=== PATIENT | female | born 1940 | race Caucasian/White ===

== ENCOUNTER 2019-03-14 17:51 | Inpatient (IN) | payer BC ==
[~2019-03-14] VITALS: Ht 160 cm; Wt 80.7 kg
--- NOTE | 2019-03-14 17:58 | QN ---
Documentation Comment Medical screening exam initiated. Patient brought in by ambulance. Will be sent to triage for vital signs. RONALDO GILLILAND MD March 14, 2019 17:58
[2019-03-14] MEDS ORDERED: PANTOPRAZOLE 40 MG INJ IV STA (18:25)
--- NOTE | 2019-03-14 20:55 | ERD ---
ER Documentation Chief Complaint Chief Complaint PER EMS REPORT HEMATEMESIS X 2 TODAY HPI Patient is a 78-year-old female with hypertension and diabetes who presents with vomiting blood. The patient was brought in by ambulance. The symptoms started 3 hours ago. She denies pain. She felt dizziness. She had the same thing happen 4 to 5 months ago but it went away on its own. Patient is currently on aspirin 81 mg but no other blood thinners. Upon review of old medical records this the patient's first visit to the emergency department. ROS All systems reviewed and are negative except as per history of present illness. Allergies Allergies: Coded Allergies: No Known Allergy (Unverified , 03/14/19) PMhx/Soc History of Surgery: Yes (BILATERAL TKR ) Anesthesia Reaction: No Hx Neurological Disorder: No Hx Respiratory Disorders: No Hx Cardiac Disorders: Yes (HTN ) Hx Psychiatric Problems: No Hx Miscellaneous Medical Probl: No Hx Alcohol Use: No Hx Substance Use: No Hx Tobacco Use: No Smoking Status: Never smoker FmHx Family History: diabetes Physical Exam Vitals Vital Signs Date Temp Pulse Resp B/P (MAP) Pulse Ox O2 O2 Flow FiO2 Time Delivery Rate 03/14/19 81 16 129/67 95 Room Air 19:36 (87) 03/14/19 98.6 100 18 150/68 99 18:00 (95) Physical Exam Const: Mild distress Head: Atraumatic Eyes: Normal Conjunctiva ENT: Normal External Ears, Nose and Mouth. Neck: Full range of motion. No meningismus. Resp: Clear to auscultation bilaterally Cardio: Regular rate and rhythm, no murmurs Abd: Soft, non tender, non distended. Normal bowel sounds Skin: Pale skin Back: No midline or flank tenderness Ext: No cyanosis, or edema Neur: Awake and alert Psych: Normal Mood and Affect Result Diagram: 03/14/19190303/14/191903 Results 24 hrs Laboratory Tests Test 03/14/19 19:03 03/14/19 19:04 Prothrombin Time 15.7 Sec Prothrombin Time Ratio 1.2 INR International Normalized Ratio 1.24 Activated Partial Thromboplast Time 25.0 Sec White Blood Count 10.2 10^3/ul Red Blood Count 3.49 10^6/ul Hemoglobin 8.7 g/dl Hematocrit 28.7 % Mean Corpuscular Volume 82.2 fl Mean Corpuscular Hemoglobin 24.9 pg Mean Corpuscular Hemoglobin Concent 30.3 g/dl Red Cell Distribution Width 16.2 % Platelet Count 232 10^3/UL Mean Platelet Volume 11.7 fl Immature Granulocytes % 0.400 % Neutrophils % 86.8 % Lymphocytes % 8.9 % Monocytes % 3.4 % Eosinophils % 0.1 % Basophils % 0.4 % Nucleated Red Blood Cells % 0.0 /100WBC Immature Granulocytes # 0.040 10^3/ul Neutrophils # 8.8 10^3/ul Lymphocytes # 0.9 10^3/ul Monocytes # 0.4 10^3/ul Eosinophils # 0.0 10^3/ul Basophils # 0.0 10^3/ul Nucleated Red Blood Cells # 0.0 10^3/ul Sodium Level 142 mmol/L Potassium Level 5.0 mmol/L Chloride Level 108 mmol/L Carbon Dioxide Level 24 mmol/L Anion Gap 10 Blood Urea Nitrogen 58 mg/dl Creatinine 0.79 mg/dl Est Glomerular Filtrat Rate mL/min mL/min Glucose Level 170 mg/dl Calcium Level 9.4 mg/dl Total Bilirubin 0.2 mg/dl Direct Bilirubin 0.00 mg/dl Indirect Bilirubin 0.2 mg/dl Aspartate Amino Transf (AST/SGOT) 19 IU/L Alanine Aminotransferase (ALT/SGPT) 22 IU/L Alkaline Phosphatase 39 IU/L Troponin I < 0.012 ng/ml Total Protein 7.2 g/dl Albumin 4.2 g/dl Globulin 3.00 g/dl Albumin/Globulin Ratio 1.40 Current Medications Medications Dose Sig/Ming Start Time Status Last (Trade) Ordered Route PRN Stop Time Admin Dose Reason Admin 40 mg ONCE STAT 03/14/19 DC 03/14/19 Pantoprazole IV 18:25 03/14/19 18:56 (Protonix 18:26 Iv) Procedures/MDM EKG read by me: Rate/Rhythm: Regular rate and rhythm at a normal rate Intervals: Normal Impression: No evidence of ischemia or arrhythmia Patient is a 78-year-old female presents with GI bleed and anemia. She has been vomiting blood in her hemoglobin is 8.7. She looked pale and was having nausea and vomiting. The patient will be admitted to the care of the panel team to a medical surgical inpatient bed. She will likely need GI consultation and endoscopy. She had an endoscopy approximately 11 years ago which was her last one. Departure Diagnosis: Primary Impression: Anemia Anemia type: unspecified type Qualified Codes: D64.9 - Anemia, unspecified Additional Impression: Hematemesis Nausea presence: with nausea Qualified Codes: K92.0 - Hematemesis Condition: RONALDO Qureshi MD March 14, 2019 20:55
[2019-03-14] MEDS ORDERED: ALBUTEROL/IPRATROPIUM (NEB) 3 ML AMP HHN PRN (21:30)
[2019-03-14] MEDS ORDERED: ONDANSETRON 4 MG INJ IV PRN (21:30)
[2019-03-14] MEDS ORDERED: NACL 0.9% 3 ML SYG IV SCH (21:30)
--- NOTE | 2019-03-14 22:13 | HP ---
Date/Time of Note Date/Time of Note DATE: 03/14/19 TIME: 22:13 Assessment/Plan VTE Prophylaxis SCD applied (from Nsg): Yes Pharmacological prophylaxis: NA/contraindicated Pharm contraindication: bleeding Lines/Catheters IV Catheter Type (from Nrsg): Saline Lock Assessment/Plan Assessment/Plan 1. Upper GI bleed -IV Protonix -Keep n.p.o. with IV fluid -GI consult 2. Anemia: Secondary to above -FOBT. Check iron/ferritin to eval for iron deficiency -See #1 Result Diagram: 03/14/19190303/14/194 Results 24hrs Laboratory Tests Test 03/14/19 19:03 03/14/19 19:04 Prothrombin Time 15.7 H Prothrombin Time Ratio 1.2 INR International Normalized Ratio 1.24 Activated Partial Thromboplast Time 25.0 White Blood Count 10.2 Red Blood Count 3.49 L Hemoglobin 8.7 L Hematocrit 28.7 L Mean Corpuscular Volume 82.2 Mean Corpuscular Hemoglobin 24.9 L Mean Corpuscular Hemoglobin Concent 30.3 L Red Cell Distribution Width 16.2 H Platelet Count 232 Mean Platelet Volume 11.7 H Immature Granulocytes % 0.400 Neutrophils % 86.8 H Lymphocytes % 8.9 L Monocytes % 3.4 Eosinophils % 0.1 Basophils % 0.4 Nucleated Red Blood Cells % 0.0 Immature Granulocytes # 0.040 H Neutrophils # 8.8 H Lymphocytes # 0.9 Monocytes # 0.4 Eosinophils # 0.0 Basophils # 0.0 Nucleated Red Blood Cells # 0.0 Sodium Level 142 Potassium Level 5.0 Chloride Level 108 Carbon Dioxide Level 24 Anion Gap 10 Blood Urea Nitrogen 58 H Creatinine 0.79 Est Glomerular Filtrat Rate mL/min Glucose Level 170 Calcium Level 9.4 Total Bilirubin 0.2 Direct Bilirubin 0.00 Indirect Bilirubin 0.2 Aspartate Amino Transf (AST/SGOT) 19 Alanine Aminotransferase (ALT/SGPT) 22 Alkaline Phosphatase 39 L Troponin I < 0.012 Total Protein 7.2 Albumin 4.2 Globulin 3.00 Albumin/Globulin Ratio 1.40 HPI/ROS Admit Date/Time Admit Date/Time Hx of Present Illness This is a 78-year-old female with history of depression and lower back pain who presents the ER complaining of vomiting blood. This is started a few hours prior to arrival to the ER. She vomited 3 times, was emesis described as bright and dark blood. She also complains of dizziness. Denies BRBPR or dark stool. When presented to the ER, vitals are stable. Hemoglobin was found to be 8.7. PMH/Family/Social Past Medical History Medical History: other (See HPI) Medications Current Medications Dextrose/Sodium Chloride 1,000 ml @ 75 mls/hr [id number] IV ; Start 03/14/19 at 21:03 IV Flush (NS 3 ml) 3 ml PER PROTOCOL IV ; Start 03/14/19 at 21:30 Ondansetron HCl (Zofran Inj) 4 mg Q6H PRN IV NAUSEA/VOMITING; Start 03/14/19 at 21:30 Albuterol/ Ipratropium (Duoneb) 3 ml Q2H RESP THERAPY PRN HHN SHORTNESS OF BREATH; Start 03/14/19 at 21:30 Coded Allergies: No Known Allergy (Unverified , 03/15/19) Past Surgical History Past Surgical Hx: other (HPI) Family History Significant Family History: no pertinent family hx Social History Alcohol Use: none Smoking Status: Never smoker Drug Use: none Exam/Review of Systems Vital Signs Vitals Vital Signs Date Temp Pulse Resp B/P (MAP) Pulse Ox O2 O2 Flow FiO2 Time Delivery Rate 03/14/19 81 16 120/75 98 Room Air 21:23 (90) 03/14/19 98.6 18:00 Exam Constitutional: other (No acute distress) Head: normocephalic, atraumatic Eyes: EOMI, PERRL Respiratory: clear to auscultation, normal air movement Cardiovascular: regular rate and rhythm, nl pulses Gastrointestinal: soft, other (Minimal abdominal pain to deep palpation, mainly in the epigastric and periumbilical area) Extremities: normal pulses ANJEL CHU MD March 14, 2019 22:13
[2019-03-15] VITALS (13 sets, daily range): BP systolic 120–154; BP diastolic 58–68; PULSE 56–81; RESP 15–25; Ht 160 cm; Wt 80.7 kg
[2019-03-15] MEDS: DEXTROSE 5%-0.45% NACL 1,000 ML IV SCH ×3 (02:04→13:28)
[2019-03-15] MEDS ORDERED: OXYB5SYR2 PO (05:47)
[2019-03-15] MEDS ORDERED: CELE200C PO (05:47)
[2019-03-15] MEDS ORDERED: ALEN35TA12 PO (05:47)
[2019-03-15] MEDS ORDERED: CHOL100062 PO (05:47)
[2019-03-15] MEDS ORDERED: LEVO25TA6 PO (05:47)
[2019-03-15] MEDS ORDERED: ASPI-903 PO (05:47)
[2019-03-15] MEDS ORDERED: FOLI-49 PO (05:47)
[2019-03-15] MEDS ORDERED: AMLO5TAB4 PO (05:47)
[2019-03-15] MEDS ORDERED: DULO60CA59 PO (05:47)
[2019-03-15] MEDS ORDERED: FER325 PO (05:47)
[2019-03-15] MEDS ORDERED: ZOC10 PO (05:47)
[2019-03-15] MEDS ORDERED: METF500T24 PO (05:47)
[2019-03-15] MEDS ORDERED: TRAM50TA PO (05:47)
[2019-03-15] MEDS ORDERED: LORA1TAB PO (05:47)
[2019-03-15] MEDS ORDERED: LOSA100T15 PO (05:47)
[2019-03-15] MEDS ORDERED: PANTOPRAZOLE 40 MG INJ IV ONE (08:00)
--- NOTE | 2019-03-15 12:34 | EN ---
Date/Time of Note Date/Time of Note DATE: 03/15/19 TIME: 12:34 CONRAD GARCIA March 15, 2019 12:34
[2019-03-15] MEDS ORDERED: traMADol 50 MG TAB PO PRN (13:00)
[2019-03-15] MEDS ORDERED: INSULIN ASPART [NOVOLOG] 3 ML PEN SC SCH ×2 (13:00→17:00)
[2019-03-15] MEDS ORDERED: hydrALAzine 20 MG INJ IV PRN (13:00)
--- NOTE | 2019-03-15 13:00 | PN ---
Date/Time of Note Date/Time of Note DATE: 03/15/19 TIME: 12:56 Assessment/Plan VTE Prophylaxis Risk score (from Ns)>0 risk: 5 SCD applied (from Ns): Yes Pharmacological prophylaxis: NA/contraindicated Pharm contraindication: bleeding Lines/Catheters [facility] Saline Lock Urinary Cath still in place: No Assessment/Plan Hospital Course Subjective: feels better, no further vomitting, hx of one episode of hematemesis a couple of months ago, resolved on it's own Objective: General: A&O x3, answering questions appropriately, elderly HEENT: NC/ AT. PERRL. EOM intact Neck: supple CVS: S1, S2, RRR. no murmurs. no pain on chest wall palpation Lungs: CTA b/l. no wheezing or rhonchi Abd: soft, nontender, +BS Ext: moving all extremities skin: no rashes Assessment and plan: 1. Upper GI bleed / Hematemesis -IV Protonix, no further vomiting since admission -Keep n.p.o. with IV fluid -GI consult 2. Anemia: Secondary to above -FOBT. Check iron/ferritin to eval for iron deficiency -See #1 3. Diabetes type 2 4. Chronic hypertension 5. Chronic dyslipidemia 6. Chronic hypothyroidism 6. Chronic NSAID therapy 7. Chronic osteoporosis 8. Chronic vitamin D deficiency 9. Chronic depression: Stable 10. Patient reporting memory loss and occasional falls without injury, likely 2/2 age, family declining imaging at this time Plan: Continue n.p.o., continue IV fluids, await GI review and recommendations. Avoid Nsaids Continue home medications, resume hypoglycemics once she has been cleared for a diet and titrate as indicated Continue supportive care. Further interventions per course. Result Diagram: 03/15/19 0436 03/15/19 0436 Results 24hrs Laboratory Tests Test 03/14/19 19:03 03/14/19 19:04 03/15/19 01:26 03/15/19 04:36 Prothrombin Time 15.7 H Prothrombin Time Ratio 1.2 INR International 1.24 Normalized Ratio Activated 25.0 Partial Thromboplast Time White Blood Count 10.2 7.0 # Red Blood Count 3.49 L 3.10 L Hemoglobin 8.7 L 7.8 L Hematocrit 28.7 L 25.5 L Mean Corpuscular Volume 82.2 82.3 Mean Corpuscular 24.9 L 25.2 L Hemoglobin Mean Corpuscular 30.3 L 30.6 L Hemoglobin Concent Red Cell Distribution 16.2 H 16.5 H Width Platelet Count 232 213 Mean Platelet Volume 11.7 H 12.2 H Immature Granulocytes % 0.400 0.300 Neutrophils % 86.8 H 62.1 Lymphocytes % 8.9 L 27.5 Monocytes % 3.4 9.0 Eosinophils % 0.1 0.7 Basophils % 0.4 0.4 Nucleated Red Blood 0.0 0.0 Cells % Immature Granulocytes # 0.040 H 0.020 Neutrophils # 8.8 H 4.4 Lymphocytes # 0.9 1.9 Monocytes # 0.4 0.6 Eosinophils # 0.0 0.1 Basophils # 0.0 0.0 Nucleated Red Blood 0.0 0.0 Cells # Sodium Level 142 143 Potassium Level 5.0 4.1 Chloride Level 108 108 Carbon Dioxide Level 24 29 Anion Gap 10 6 Blood Urea Nitrogen 58 H 50 H Creatinine 0.79 0.65 Est Glomerular Filtrat Rate mL/min Glucose Level 170 133 Calcium Level 9.4 9.1 Total Bilirubin 0.2 0.2 Direct Bilirubin 0.00 0.00 Indirect Bilirubin 0.2 0.2 Aspartate Amino 19 17 Transf (AST/SGOT) Alanine 22 26 Aminotransferase (ALT/SG PT) Alkaline Phosphatase 39 L 34 L Troponin I < 0.012 Total Protein 7.2 6.4 Albumin 4.2 3.7 Globulin 3.00 2.70 Albumin/Globulin Ratio 1.40 1.37 Bedside Glucose 127 Phosphorus Level 3.6 Magnesium Level 2.3 Test 03/15/19 12:01 Bedside Glucose 138 Exam/Review of Systems Exam Vitals Vital Signs Date Temp Pulse Resp B/P (MAP) Pulse Ox O2 O2 Flow FiO2 Time Delivery Rate 03/15/19 98.5 75 17 132/62 95 Room Air 07:52 (85) Intake and Output 03/14/19 03/14/19 03/15/19 1515:00 23:00 07:00 IntakeIntake Total 225 ml BalanceBalance 225 ml Results Results 24hrs Laboratory Tests Test 03/14/19 19:03 03/14/19 19:04 03/15/19 01:26 03/15/19 04:36 Prothrombin Time 15.7 H Prothrombin Time Ratio 1.2 INR International 1.24 Normalized Ratio Activated 25.0 Partial Thromboplast Time White Blood Count 10.2 7.0 # Red Blood Count 3.49 L 3.10 L Hemoglobin 8.7 L 7.8 L Hematocrit 28.7 L 25.5 L Mean Corpuscular Volume 82.2 82.3 Mean Corpuscular 24.9 L 25.2 L Hemoglobin Mean Corpuscular 30.3 L 30.6 L Hemoglobin Concent Red Cell Distribution 16.2 H 16.5 H Width Platelet Count 232 213 Mean Platelet Volume 11.7 H 12.2 H Immature Granulocytes % 0.400 0.300 Neutrophils % 86.8 H 62.1 Lymphocytes % 8.9 L 27.5 Monocytes % 3.4 9.0 Eosinophils % 0.1 0.7 Basophils % 0.4 0.4 Nucleated Red Blood 0.0 0.0 Cells % Immature Granulocytes # 0.040 H 0.020 Neutrophils # 8.8 H 4.4 Lymphocytes # 0.9 1.9 Monocytes # 0.4 0.6 Eosinophils # 0.0 0.1 Basophils # 0.0 0.0 Nucleated Red Blood 0.0 0.0 Cells # Sodium Level 142 143 Potassium Level 5.0 4.1 Chloride Level 108 108 Carbon Dioxide Level 24 29 Anion Gap 10 6 Blood Urea Nitrogen 58 H 50 H Creatinine 0.79 0.65 Est Glomerular Filtrat Rate mL/min Glucose Level 170 133 Calcium Level 9.4 9.1 Total Bilirubin 0.2 0.2 Direct Bilirubin 0.00 0.00 Indirect Bilirubin 0.2 0.2 Aspartate Amino 19 17 Transf (AST/SGOT) Alanine 22 26 Aminotransferase (ALT/SG PT) Alkaline Phosphatase 39 L 34 L Troponin I < 0.012 Total Protein 7.2 6.4 Albumin 4.2 3.7 Globulin 3.00 2.70 Albumin/Globulin Ratio 1.40 1.37 Bedside Glucose 127 Phosphorus Level 3.6 Magnesium Level 2.3 Test 03/15/19 12:01 Bedside Glucose 138 Medications Medication Current Medications Dextrose/Sodium Chloride 1,000 ml @ 75 mls/hr [id number] IV Last administered on 03/15/19at 02:04; Admin Dose 75 MLS/HR; Start 03/14/19 at 21:03 IV Flush (NS 3 ml) 3 ml PER PROTOCOL IV ; Start 03/14/19 at 21:30 Ondansetron HCl (Zofran Inj) 4 mg Q6H PRN IV NAUSEA/VOMITING Last administered on 03/15/19at 01:28; Admin Dose 4 MG; Start 03/14/19 at 21:30 Albuterol/ Ipratropium (Duoneb) 3 ml Q2H RESP THERAPY PRN HHN SHORTNESS OF BREATH; Start 03/14/19 at 21:30 Pantoprazole (Protonix Iv) 40 mg BID@06,18 IV ; Start 03/15/19 at 18:00 CONRAD GARCIA March 15, 2019 13:00
[2019-03-15] MEDS ORDERED: LORAZEPAM 1 MG TAB PO PRN (14:00)
[2019-03-15] MEDS: PANTOPRAZOLE 40 MG INJ IV SCH (18:00)
[2019-03-15] MEDS ORDERED: PROPOFOL 40 ML ONE (18:09)
[2019-03-15] MEDS ORDERED: LIDOCAINE 2% (SDV) 5 ML INJ ONE (18:09)
--- NOTE | 2019-03-15 18:19 | PREAC ---
Date/Time of Note Date/Time of Note DATE: 03/15/19 TIME: 18:17 Anesthesia Eval and Record Evaluation Time Pre-Procedure Interview DATE: 03/15/19 TIME: 18:17 Age 78 Sex female NPO: 8 hrs Preoperative diagnosis Upper GI bleeding Planned procedure EGD Past Medical History Past Medical History: Includes Cardio: HTN, Dyslipidemia Endo: Diabetes GI: Morbid obesity Surgery & Anesthesia Issues No known issue Meds Anticoagulation: Yes Beta Evelyn within 24 hr: No Reason Beta Evelyn not given: Pt. not on B-Evelyn Reported Medications Cholecalciferol* (Vitamin D3*) 1,000 Unit Tablet, 11754 UNIT PO ONCE A WEEK, TAB 03/15/19 Alendronate Sodium* (Alendronate Sodium*) 35 Mg Tablet, 70 MG PO Q7D, #4 TAB 03/15/19 Folic Acid* (Folic Acid*) 1 Mg Tablet, 1 MG PO DAILY, TAB 03/15/19 Tramadol Hcl* (Ultram*) 50 Mg Tablet, 50 MG PO Q6H PRN for PAIN, TAB 03/15/19 Oxybutynin Chloride* (Oxybutynin Chloride*) 5 Mg/5 Ml Syrup, 5 MG PO TID, ML 03/15/19 Celecoxib* (Celebrex*) 200 Mg Capsule, 200 MG PO DAILY, CAP 03/15/19 Ferrous Sulfate* (Ferrous Sulfate*) 325 Mg Tabec, 325 MG PO BID, TAB 03/15/19 Levothyroxine Sodium* (Levothyroxine Sodium*) 25 Mcg Tablet, 25 MCG PO BEFORE BREAKFAST, #30 TAB 03/15/19 Aspirin* (Aspirin* Chew) 81 Mg Tab.chew, 81 MG PO DAILY, TAB.CHEW 03/15/19 Simvastatin (Simvastatin) 10 Mg Tablet, 10 MG PO QHS, #30 TAB 03/15/19 Metformin Hcl* (Metformin Hcl*) 500 Mg Tablet, 500 MG PO WITH BREAKFAST, #30 TAB 03/15/19 Amlodipine Besylate* (Norvasc*) 5 Mg Tablet, 5 MG PO DAILY, TAB 03/15/19 Losartan Potassium* (Losartan Potassium*) 100 Mg Tablet, 100 MG PO DAILY, TAB 03/15/19 Duloxetine Hcl* (Duloxetine Hcl*) 60 Mg Capsule.dr, 60 MG PO DAILY, #30 CAP 03/15/19 Lorazepam* (Lorazepam*) 1 Mg Tablet, 1 MG PO HS PRN for SLEEP, #30 TAB 03/15/19 Current Medications Dextrose/Sodium Chloride 1,000 ml @ 75 mls/hr [id number] IV Last administered on 03/15/19at 13:28; Admin Dose 75 MLS/HR; Start 03/14/19 at 21:03 IV Flush (NS 3 ml) 3 ml PER PROTOCOL IV ; Start 03/14/19 at 21:30 Ondansetron HCl (Zofran Inj) 4 mg Q6H PRN IV NAUSEA/VOMITING Last administered on 03/15/19at 01:28; Admin Dose 4 MG; Start 03/14/19 at 21:30 Albuterol/ Ipratropium (Duoneb) 3 ml Q2H RESP THERAPY PRN HHN SHORTNESS OF BREATH; Start 03/14/19 at 21:30 Pantoprazole (Protonix Iv) 40 mg BID@06,18 IV ; Start 03/15/19 at 18:00 Amlodipine Besylate (Norvasc) 5 mg DAILY PO ; Start 03/16/19 at 09:00 Duloxetine HCl (Cymbalta) 60 mg DAILY PO ; Start 03/16/19 at 09:00 Folic Acid (Folic Acid) 1 mg DAILY PO ; Start 03/16/19 at 09:00 Levothyroxine Sodium (Synthroid) 25 mcg BEFORE BREAKFAST PO ; Start 03/16/19 at 07:00 Losartan Potassium (Cozaar) 100 mg DAILY PO ; Start 03/16/19 at 09:00 Tramadol HCl (Ultram) 50 mg Q6H PRN PO PAIN; Start 03/15/19 at 13:00 Miscellaneous Information 5 mg TID PO ; Start 03/15/19 at 13:00; Status UNV Miscellaneous Information 10 mg QHS PO ; Start 03/15/19 at 21:00; Status UNV Hydralazine HCl (Apresoline) 10 mg Q6H PRN IV sbp>160mmhg; Start 03/15/19 at 13:00 Insulin Aspart (Novolog Insulin Pen) NOVOLOG *MILD* ALGORI... Q4 SC ; Start 03/15/19 at 17:00 Lorazepam (Ativan) 1 mg QHS PRN PO INSOMNIA; Start 03/15/19 at 14:00 Meds reviewed: Yes Allergies Coded Allergies: No Known Allergy (Unverified , 03/15/19) Allergies Reviewed: Yes Labs/Studies Labs Reviewed: Reviewed by anesthesiologist Result Diagram: 03/15/19 0436 03/15/19 0436 Laboratory Tests 03/15/19 04:36 Blood Bank Test 03/14/19 19:04 Antibody Screen NEGATIVE Blood Type A POSITIVE test: N/A Studies: ECG Pre-procedure Exam Last vitals Vital Signs Date Temp Pulse Resp B/P (MAP) Pulse Ox O2 O2 Flow FiO2 Time Delivery Rate 03/15/19 98.2 78 16 141/65 92 Room Air 17:45 (90) Airway: Adequate mouth opening, Adequate thyromental dist Mallampati: Mallampati III Teeth: Normal Lung: Normal Heart: Normal ASA Physical Status ASA physical status: 3 Emergency: E Planned Anesthetic General/MAC: MAC Planned Pain Management Parenteral pain med Pre-operative Attestations Prior to commencing anesthesia and surgery, the patient was re-evaluated, there was verification of: *The patient's identity *The results of appropriate recent lab work and preoperative vital signs *The above evaluation not changing prior to induction *Anesthetic plan, risk benefits, alternative and complications discussed with patient/family; questions answered; patient/family understands, accepts and wishes to proceed. ALBINO MONSIVAIS MD March 15, 2019 18:19
--- NOTE | 2019-03-15 18:47 | PAC ---
Date/Time of Note Date/Time of Note DATE: 03/15/19 TIME: 18:40 Post-Anesthesia Notes Post-Anesthesia Note Last documented vital signs Vital Signs Date Temp Pulse Resp B/P (MAP) Pulse Ox O2 O2 Flow FiO2 Time Delivery Rate 03/15/19 98.2 78 16 141/65 92 Room Air 17:45 (90) Activity: WNL Respiratory function: WNL Cardiovascular function: WNL Mental status: Baseline Pain reasonably controlled: Yes Hydration appropriate: Yes Nausea/Vomiting absent: Yes Comments BP:112/67, P:87, Spo2:100%,T:98,8 ALBINO MONSIVAIS MD March 15, 2019 18:47
--- NOTE | 2019-03-15 19:06 | CONS ---
DATE OF ADMISSION: 03/14/2019 DATE OF CONSULTATION: Dear Dr. Garcia: Thank you for asking me to see Mrs. Pozo in GI consultation. HISTORY OF PRESENT ILLNESS: As you know, patient is a 78-year-old [place] female admitted to the [facility] because of a history of vomiting blood, which she had earlier today, which happened 3 times. She also had a similar hematemesis several weeks ago, which was not addressed at that time. No histo ry of bleeding from the rectum. No history of black stools. No history of vomiting. No history of taking nonsteroidal anti-inflammatory drugs. MEDICATIONS: Currently in the hospital includes: 1. Dextrose and sodium chloride. 2. Zofran. 3. DuoNeb. REVIEW OF SYSTEMS: Positive for diabetes, hypertension. PAST SURGICAL HISTORY: Includes a total knee replacement. SOCIAL HISTORY: The patient does not smoke or drink. PHYSICAL EXAMINATION: GENERAL: The patient is a 78-year-old [place] female who at this time is alert. VITAL SIGNS: She is afebrile, blood pressure is 141/65. HEART: Normal heart sounds. RESPIRATORY: Normal breath sounds. ABDOMEN: Showed a soft abdomen with no palpable masses, no tenderness and no distention. LABORATORY WORKUP: Hemoglobin dropped to 7.8 at 4:00 this morning from 8.7 last night. Chemistry: Potassium is 4.1, bilirubin 0.2, AST 17, ALT 26, albumin 4.2. BUN is 50. CLINICAL IMPRESSION: The patient presenting with a history of vomiting blood on several occasions, r ule out bleeding, ulcer disease, or arteriovenous malformation or malignancy. History of diabetes, hypertension. History of arthritis, status post knee replacement. PLAN: Recommend IV Protonix 40 mg b.i.d. Also recommend upper endoscopy. Once again, doctor, thank you for this consultation. Dictated By: AIDA CASTILLO MD NC/NTS Conf#: [id number] DID#: [id number] CC: CONRAD GARCIA MD;*EndCC*
[2019-03-15] MEDS ORDERED: DEXTROSE 50% 50 ML SYRINGE IV PRN ×2 (20:30)
[2019-03-15] MEDS ORDERED: GLUCAGON 1 MG INJ IM PRN (20:30)
[2019-03-15] MEDS ORDERED: GLUCOSE GEL 15 GRAM TUBE PO PRN ×2 (20:30)
[2019-03-15] MEDS ORDERED: GLUCOSE GEL 15 GRAM TUBE BUCCAL PRN (20:30)
[2019-03-15] MEDS: INSULIN ASPART [NOVOLOG] 3 ML PEN SC SCH (21:00)
[2019-03-15] MEDS ORDERED: ATORVASTATIN 10 MG TAB PO SCH (21:00)
[2019-03-16] MEDS ORDERED: ACCU-CHEK XX SCH ×2 (02:00)
[2019-03-16 03:59] VITALS: BP 133/60; PULSE 69; RESP 16
[2019-03-16] MEDS: PANTOPRAZOLE 40 MG INJ IV SCH (06:15)
[2019-03-16] MEDS ORDERED: LEVOTHYROXINE 25 MCG TAB PO SCH (07:00)
[2019-03-16 07:48] VITALS: BP 140/61; PULSE 78; RESP 18
[2019-03-16] MEDS: OXYBUTYNIN 5 MG TAB PO SCH ×2 (08:55→12:18)
[2019-03-16] MEDS: INSULIN ASPART [NOVOLOG] 3 ML PEN SC SCH ×2 (08:56→12:21)
[2019-03-16] MEDS ORDERED: FOLIC ACID 1 MG TAB PO SCH (09:00)
[2019-03-16] MEDS ORDERED: DULOXETINE 30 MG CAP DR PO SCH (09:00)
[2019-03-16] MEDS ORDERED: LOSARTAN 50 MG TAB PO SCH (09:00)
[2019-03-16] MEDS ORDERED: AMLODIPINE 5 MG TAB PO SCH (09:00)
[2019-03-16] MEDS ORDERED: SUCR1TAB56 PO (09:42)
[2019-03-16] MEDS ORDERED: PANT40TA3 PO (09:42)
--- NOTE | 2019-03-16 09:46 | PDOCDIS ---
Discharge Instructions CONDITION [id number] Patient Condition: [id number] Stable HOME CARE INSTRUCTIONS: [id number] Diet Instructions: [id number] Low Fat /Cholesterol ACTIVITY: [id number] Activity Restrictions: [id number] Slowly Increase Activity Rest between Activity FOLLOW UP/APPOINTMENTS Follow-up Plan 1. Please schedule an appointment and try to see her primary care doctor within the next 2 weeks to notify them of the events during this hospitalization 2. Avoid all NSAIDs. These include drugs like ibuprofen, Motrin, naproxen, celecoxib, and high-dose aspirin. If you are not sure, verify with your pharmacist or your primary care doctor. You have an ulcer in your stomach that was bleeding. These drugs can potentiate the bleeding, and can also cause ulcers in the stomach. 3. Take the new medications I have prescribed, Protonix and Carafate and iron, religiously for at least 1 month. At the end of the month, ask your primary care doctor if you need to continue taking them. You will benefit from repeat endoscopy after about 6 weeks to 8 weeks to ensure that your ulcer is healed. Your primary care doctor can arrange for this. You may also try to follow-up with Dr. Raymundo if your insurance approves it. He is the doctor who did your endoscopy here. His information is as below. Please follow-up with Dr. Raymundo for gastroenterology. Name, Degree : Arjun Raymundo MD Specialty : Gastroenterology Office Address : [address] [place] [address] Office Office 4. Review your medication list with your nurse before leaving. If you need new prescriptions or have any questions, please let her know, she can clarify and assist. 5. Watch out for dizziness of bleeding, return to the ER if you have any concerns and cannot reach your doctors or call your insurance company, they usually have a nurse that can help you. CONRAD GARCIA March 16, 2019 09:46
[2019-03-16] MEDS ORDERED: FER325 PO (09:47)
[2019-03-16] MEDS ORDERED: DOCU-144 PO (09:47)
--- NOTE | 2019-03-16 09:56 | DS ---
Date/Time of Note Date/Time of Note DATE: 03/16/19 TIME: 09:50 Discharge Summary Admission/Discharge Info Admit Date/Time March 14, 2019 at 21:05 Discharge Date/Time Discharge Diagnosis 1. Upper GI bleed / Hematemesis -Upper endoscopy showed chronic gastric ulcers, 12mm which was clipped -path obtained and still pending 2. Anemia:iron deficiency 3. Diabetes type 2 4. Chronic hypertension 5. Chronic dyslipidemia 6. Chronic hypothyroidism 6. Chronic NSAID therapy 7. Chronic osteoporosis 8. Chronic vitamin D deficiency 9. Chronic depression: Stable 10. Patient reporting memory loss and occasional falls without injury, likely 2/2 age, family declining imaging at this time . Patient Condition: Stable Consults GI: Dr Raymundo. . Procedures Patient underwent upper endoscopy March 15, 2019, endoscopy showed chronic acid recall for ulcer chronic gastric ulcer without hemorrhage or perforation, pathology was obtained. Gastric ulcer of the size 12 mm was clipped . Hospital Course 78-year-old female who had presented to the emergency room after large episode of hematemesis. She has had history of similar a few months prior. She was admitted for further work-up. GI consultation was obtained. Patient underwent upper endoscopy March 15, 2019, endoscopy showed chronic acid recall for ulcer chronic gastric ulcer without hemorrhage or perforation, pathology was obtained. Gastric ulcer of the size 12 mm was clipped. Patient tolerated procedure well. Patient was resumed on clear liquid diet postprocedure. At this time we will advance her diet, if she tolerates that she can be discharged if cleared by GI in stable condition. . Home Meds Active Scripts Docusate Sodium* (Colace*) 100 Mg Capsule, 100 MG PO BID, #60 CAP Prov:RADHA GARCIACAREY Levi. 03/16/19 Ferrous Sulfate* (Ferrous Sulfate*) 325 Mg Tabec, 325 MG PO TID, #90 TAB 1 Refill Prov:JOSECONRAD . 03/16/19 Sucralfate* (Carafate*) 1 Gm Tab, 1 GM PO Q6, #120 TAB Prov:LEMUEL GARCIALeslie Levi. 03/16/19 Pantoprazole* (Protonix*) 40 Mg Tablet., 40 MG PO BID, #60 TAB Prov:CONRAD GARCIA. 03/16/19 Reported Medications Cholecalciferol* (Vitamin D3*) 1,000 Unit Tablet, 52404 UNIT PO ONCE A WEEK, TAB 03/15/19 Alendronate Sodium* (Alendronate Sodium*) 35 Mg Tablet, 70 MG PO Q7D, #4 TAB 03/15/19 Folic Acid* (Folic Acid*) 1 Mg Tablet, 1 MG PO DAILY, TAB 03/15/19 Tramadol Hcl* (Ultram*) 50 Mg Tablet, 50 MG PO Q6H PRN for PAIN, TAB 03/15/19 Oxybutynin Chloride* (Oxybutynin Chloride*) 5 Mg/5 Ml Syrup, 5 MG PO TID, ML 03/15/19 Celecoxib* (Celebrex*) 200 Mg Capsule, 200 MG PO DAILY, CAP 03/15/19 Levothyroxine Sodium* (Levothyroxine Sodium*) 25 Mcg Tablet, 25 MCG PO BEFORE BREAKFAST, #30 TAB 03/15/19 Aspirin* (Aspirin* Chew) 81 Mg Tab.chew, 81 MG PO DAILY, TAB.CHEW 03/15/19 Simvastatin (Simvastatin) 10 Mg Tablet, 10 MG PO QHS, #30 TAB 03/15/19 Metformin Hcl* (Metformin Hcl*) 500 Mg Tablet, 500 MG PO WITH BREAKFAST, #30 TAB 03/15/19 Amlodipine Besylate* (Norvasc*) 5 Mg Tablet, 5 MG PO DAILY, TAB 03/15/19 Losartan Potassium* (Losartan Potassium*) 100 Mg Tablet, 100 MG PO DAILY, TAB 03/15/19 Duloxetine Hcl* (Duloxetine Hcl*) 60 Mg Capsule.dr, 60 MG PO DAILY, #30 CAP 03/15/19 Lorazepam* (Lorazepam*) 1 Mg Tablet, 1 MG PO HS PRN for SLEEP, #30 TAB 03/15/19 Follow-up Plan 1. Please schedule an appointment and try to see her primary care doctor within the next 2 weeks to notify them of the events during this hospitalization 2. Avoid all NSAIDs. These include drugs like ibuprofen, Motrin, naproxen, celecoxib, and high-dose aspirin. If you are not sure, verify with your pharmacist or your primary care doctor. You have an ulcer in your stomach that was bleeding. These drugs can potentiate the bleeding, and can also cause ulcers in the stomach. 3. Take the new medications I have prescribed, Protonix and Carafate and iron, religiously for at least 1 month. At the end of the month, ask your primary care doctor if you need to continue taking them. You will benefit from repeat endoscopy after about 6 weeks to 8 weeks to ensure that your ulcer is healed. Your primary care doctor can arrange for this. You may also try to follow-up with Dr. Raymundo if your insurance approves it. He is the doctor who did your endoscopy here. His information is as below. Please follow-up with Dr. Raymundo for gastroenterology. Name, Degree : Arjun Raymundo MD Specialty : Gastroenterology Office Address : [address] [place] [address] Office Office 4. Review your medication list with your nurse before leaving. If you need new prescriptions or have any questions, please let her know, she can clarify and assist. 5. Watch out for dizziness of bleeding, return to the ER if you have any [place] rns and cannot reach your doctors or call your insurance company, they usually have a nurse that can help you. Primary Care Provider Not On Staff Doctor Time spent on discharge: > 30 minutes Pending Labs Laboratory Tests Test 03/15/19 12:01 03/15/19 21:15 03/16/19 06:43 03/16/19 08:50 Bedside 138 119 193 Glucose mg/dL (70-220) mg/dL (70-220) mg/dL (70-220) White Blood 5.8 Count 10^3/ul (4.8-1 0.8) Red Blood 3.03 Count 10^6/ul (4.20- 5.40) Hemoglobin 7.6 g/dl (12.0-16. 0) Hematocrit 25.2 % (37.0-47.0) Mean 83.2 Corpuscular fl (82.0-101.0 Volume ) Mean 25.1 Corpuscular pg (29.0-33.0) Hemoglobin Mean 30.2 Corpuscular g/dl (32.0-37. Hemoglobin Conc 0) ent Red Cell 16.5 Distribution % (11.5-14.5) Width Platelet Count 171 10^3/UL (140-4 15) Mean Platelet 10.8 Volume fl (7.4-10.4) Immature 0.500 Granulocytes % % (0.001-0.429 ) Neutrophils % 63.8 % (39.0-77.0) Lymphocytes % 22.5 % (15.0-51.0) Monocytes % 9.8 % (0.0-11.0) Eosinophils % 3.1 % (0.0-7.0) Basophils % 0.3 % (0.0-2.0) Nucleated Red 0.0 Blood Cells % /100WBC (0.0-0 .0) Immature 0.030 Granulocytes # 10^3/ul (0.0-0 .031) Neutrophils # 3.7 10^3/ul (1.6-7 .5) Lymphocytes # 1.3 10^3/ul (0.8-2 .9) Monocytes # 0.6 10^3/ul (0.3-0 .9) Eosinophils # 0.2 10^3/ul (0.0-0 .5) Basophils # 0.0 10^3/ul (0.0-0 .1) Nucleated Red 0.0 Blood Cells # 10^3/ul (0.0-0 .0) Sodium Level 141 mmol/L (135-14 4) Potassium 4.1 Level mmol/L (3.5-5. 1) Chloride Level 106 mmol/L (97-110 ) Carbon Dioxide 28 Level mmol/L (21-31) Anion Gap 7 (5-13) Blood Urea 25 Nitrogen mg/dl (7-20) Creatinine 0.58 mg/dl (0.44-1. 00) Est Glomerular mL/min (>60) Filtrat Rate mL/min Glucose Level 125 mg/dl (70-220) Calcium Level 8.6 mg/dl (8.4-10. 2) Magnesium 2.0 Level mg/dl (1.7-2.5 ) Thyroid 3.720 Stimulating MIU/L (0.465-4 Hormone (TSH) .680) CONRAD GARCIA March 16, 2019 09:56
[2019-03-16] MEDS ORDERED: SOD FERRIC GLUC COMPLX 125 MG in SOD CHLORIDE 0.9% 100 ML IVPB ONE (12:00)
[2019-03-16 14:13] VITALS: BP 101/54; PULSE 75; RESP 16
== END 2019-03-16 15:26 | disposition home or self-care (01) | DRG 358 ==
LOC: E/R 17:51 → PP2 21:05
PROVIDERS: ADMIT Internal Medicine; ATTEND Family Medicine
PROC: 0W3P4ZZ Control Bleeding in Gastrointestinal Tract, Percutaneous Endoscopic Approach (ICD-10-PCS; principal; 2019-03-15 17:30)
DX: K25.4 Chronic or unspecified gastric ulcer with hemorrhage (principal); E66.01 Morbid (severe) obesity due to excess calories; Z68.31 Body mass index [BMI] 31.0-31.9, adult; E11.9 Type 2 diabetes mellitus without complications; I10 Essential (primary) hypertension; D50.0 Iron deficiency anemia secondary to blood loss (chronic); E03.9 Hypothyroidism, unspecified; E78.5 Hyperlipidemia, unspecified; E55.9 Vitamin D deficiency, unspecified; M81.0 Age-related osteoporosis without current pathological fracture; F32.9 Major depressive disorder, single episode, unspecified; R29.6 Repeated falls; R41.3 Other amnesia; Z79.1 Long term (current) use of non-steroidal anti-inflammatories (NSAID); Z79.82 Long term (current) use of aspirin; Z96.653 Presence of artificial knee joint, bilateral
CPT/HCPCS: 36415; 72040; 80048; 80053; 82270; 82962; 83735; 84100; 84443; 84484; 85025; 85610; 85730; 86850; 86900; 86901; 88305; 88312; 93005; 96374; 97162; C9113; J1815; J2405; J2916; J7042

== ENCOUNTER 2019-05-28 10:53 | Emergency (ER) | payer BC ==
[~2019-05-28] VITALS: Wt 70.0 kg
[~2019-05-28 10:53] MED LIST: ALEN35TA12 PO; AMLO5TAB4 PO; ASPI-903 PO; CHOL100062 PO; DOCU-144 PO; DULO60CA59 PO; FER325 PO; FOLI-49 PO; LEVO25TA6 PO; LORA1TAB PO; LOSA100T15 PO; METF500T24 PO; OXYB5SYR2 PO; PANT40TA3 PO; SUCR1TAB56 PO; TRAM50TA PO; ZOC10 PO
[2019-05-28] MEDS ORDERED: PANTOPRAZOLE 40 MG INJ IV STA (11:51)
[2019-05-28] MEDS ORDERED: LOSA100T15 PO (12:20)
[2019-05-28] MEDS ORDERED: ERGO500013 PO (12:20)
[2019-05-28] MEDS ORDERED: FER325 PO (12:21)
[2019-05-28] MEDS ORDERED: SUCR1TAB56 PO ×2 (12:22→14:53)
[2019-05-28] MEDS ORDERED: DOCU100T PO (12:22)
[2019-05-28] MEDS ORDERED: PANT40TA3 PO ×2 (12:23→14:53)
--- NOTE | 2019-05-28 14:51 | ERD ---
ER Documentation Chief Complaint Chief Complaint VOMITING BLOOD SINE THIS MORNING HX OF STOMACH ULCERS HPI This is a 78-year-old female with a past medical history of gastritis with known bleeding ulcers who is presenting with nausea and 1-2 episodes of vomiting blood this morning. Since arrival to the emergency department, the patient has not had any episodes of vomiting. She does not endorse any nausea or abdominal pain. The patient does not endorse any constipation or diarrhea. She has not noticed any black or bloody or tarry stools. She denies any dysuria or hematuria or urgency or frequency. The patient does not report eating anything out of the ordinary. She does not know if her symptoms have been associated wi th food. The patient does not endorse any alleviating or exacerbating factors. The patient feels slightly fatigued at this time, but otherwise has no complaints. She has an endoscopy scheduled for next week with her bus assistant. Unfortunately, the patient has not been on her ulcer medications in over a month since she ran out. The patient denies feeling sick recently. The patient denies fever or chills. The patient has had no headache or vision changes. The patient does not endorse neck or back pain. The patient denies lightheadedness or dizziness. The patient has had no chest pain or trouble breathing. The patient has had no focal deficits. The patient has had no weakness or numbness or tingling to the face or extremities. ROS All systems reviewed and are negative except as per history of present illness. Medications Home Meds Reported Medications Pantoprazole* (Protonix*) 40 Mg Tablet.dr, 40 MG PO BID, TAB 05/28/19 Docusate Sodium* (Dok*) 100 Mg Tablet, 100 MG PO BID, #60 CAP 05/28/19 Sucralfate* (Carafate*) 1 Gm Tab, 1 GM PO AC MEALS AND BEDTIME, TAB 05/28/19 Ferrous Sulfate* (Ferrous Sulfate*) 325 Mg Tabec, 325 MG PO TID, TAB 05/28/19 Losartan Potassium* (Losartan Potassium*) 100 Mg Tablet, 100 MG PO DAILY, TAB 05/28/19 Ergocalciferol (Vitamin D2) (VITAMIN D2) 50,000 Unit Capsule, 01420 UNIT PO ONCE A WEEK, CAP 05/28/19 Alendronate Sodium* (Alendronate Sodium*) 35 Mg Tablet, 70 MG PO Q7D, #4 TAB 5/6/19 Folic Acid* (Folic Acid*) 1 Mg Tablet, 1 MG PO DAILY, TAB 03/15/19 Tramadol Hcl* (Ultram*) 50 Mg Tablet, 50 MG PO Q6H PRN for PAIN, TAB 03/15/19 Levothyroxine Sodium* (Levothyroxine Sodium*) 25 Mcg Tablet, 25 MCG PO BEFORE BREAKFAST, #30 TAB 03/15/19 Aspirin* (Aspirin* Chew) 81 Mg Tab.chew, 81 MG PO DAILY, TAB.CHEW 03/15/19 Simvastatin (Simvastatin) 10 Mg Tablet, 10 MG PO QHS, #30 TAB 03/15/19 Metformin Hcl* (Metformin Hcl*) 500 Mg Tablet, 500 MG PO WITH BREAKFAST, #30 TAB 03/15/19 Amlodipine Besylate* (Norvasc*) 5 Mg Tablet, 5 MG PO DAILY, TAB 03/15/19 Losartan Potassium* (Losartan Potassium*) 100 Mg Tablet, 100 MG PO DAILY, TAB 03/15/19 Duloxetine Hcl* (Duloxetine Hcl*) 60 Mg Capsule.dr, 60 MG PO DAILY, #30 CAP 03/15/19 Lorazepam* (Lorazepam*) 1 Mg Tablet, 1 MG PO HS PRN for SLEEP, #30 TAB 03/15/19 Discontinued Reported Medications Cholecalciferol* (Vitamin D3*) 1,000 Unit Tablet, 16121 UNIT PO ONCE A WEEK, TAB 03/15/19 Oxybutynin Chloride* (Oxybutynin Chloride*) 5 Mg/5 Ml Syrup, 5 MG PO TID, ML 03/15/19 Discontinued Scripts Docusate Sodium* (Colace*) 100 Mg Capsule, 100 MG PO BID, #60 CAP Prov:CONRAD GARCIA M. 03/16/19 Ferrous Sulfate* (Ferrous Sulfate*) 325 Mg Tabec, 325 MG PO TID, #90 TAB 1 Refill Prov:CONRAD GARCIA M. 03/16/19 Sucralfate* (Carafate*) 1 Gm Tab, 1 GM PO Q6, #120 TAB Prov:JOSECONRAD Garcia M. 03/16/19 Pantoprazole* (Protonix*) 40 Mg Tablet.dr, 40 MG PO BID, #60 TAB Prov:CONRAD GARCIA M. 03/16/19 Allergies Allergies: Coded Allergies: No Known Allergy (Unverified , 03/15/19) PMhx/Soc History of Surgery: Yes (Bilat Knee replacement, hysterectomy) Anesthesia Reaction: No Hx Neurological Disorder: Yes (Lower back pain, disk) Hx Respiratory Disorders: No Hx Cardiac Disorders: No Hx Psychiatric Problems: Yes (Depression) Hx Miscellaneous Medical Probl: Yes (gastritis with bleeding ulcers ) Hx Alcohol Use: No Hx Substance Use: No Hx Tobacco Use: No Smoking Status: Never smoker FmHx Family History: No diabetes Physical Exam Vitals Vital Signs Date Temp Pulse Resp B/P (MAP) Pulse Ox O2 O2 Flow FiO2 Time Delivery Rate 05/28/19 99.1 96 18 151/69 99 11:04 (96) Physical Exam Const: No acute distress Head: Atraumatic Eyes: Normal Conjunctiva ENT: Normal External Ears, Nose and Mouth. Neck: Full range of motion. No meningismus. Resp: Clear to auscultation bilaterally Cardio: Regular rate and rhythm, no murmurs Abd: Soft, non tender, non distended. Normal bowel sounds Skin: No petechiae or rashes Back: No midline or flank tenderness Ext: No cyanosis, or edema Neur: Awake and alert Psych: Normal Mood and Affect Result Diagram: 05/28/19 1144 05/28/19 1144 Results 24 hrs Laboratory Tests Test 05/28/19 11:44 White Blood Count 10.2 10^3/ul Red Blood Count 3.70 10^6/ul Hemoglobin 9.5 g/dl Hematocrit 30.7 % Mean Corpuscular Volume 83.0 fl Mean Corpuscular Hemoglobin 25.7 pg Mean Corpuscular Hemoglobin Concent 30.9 g/dl Red Cell Distribution Width 17.4 % Platelet Count 256 10^3/UL Mean Platelet Volume 11.6 fl Immature Granulocytes % 0.600 % Neutrophils % 82.9 % Lymphocytes % 11.2 % Monocytes % 4.7 % Eosinophils % 0.2 % Basophils % 0.4 % Nucleated Red Blood Cells % 0.0 /100WBC Immature Granulocytes # 0.060 10^3/ul Neutrophils # 8.4 10^3/ul Lymphocytes # 1.1 10^3/ul Monocytes # 0.5 10^3/ul Eosinophils # 0.0 10^3/ul Basophils # 0.0 10^3/ul Nucleated Red Blood Cells # 0.0 10^3/ul Prothrombin Time 13.8 Sec Prothrombin Time Ratio 1.1 INR International Normalized Ratio 1.05 Activated Partial Thromboplast Time 23.4 Sec Sodium Level 142 mmol/L Potassium Level 4.6 mmol/L Chloride Level 105 mmol/L Carbon Dioxide Level 28 mmol/L Anion Gap 9 Blood Urea Nitrogen 53 mg/dl Creatinine 0.67 mg/dl Est Glomerular Filtrat Rate mL/min mL/min Glucose Level 161 mg/dl Calcium Level 9.2 mg/dl Total Bilirubin 0.4 mg/dl Direct Bilirubin 0.00 mg/dl Indirect Bilirubin 0.4 mg/dl Aspartate Amino Transf (AST/SGOT) 22 IU/L Alanine Aminotransferase (ALT/SGPT) 17 IU/L Alkaline Phosphatase 33 IU/L Troponin I < 0.012 ng/ml Total Protein 7.3 g/dl Albumin 4.3 g/dl Globulin 3.00 g/dl Albumin/Globulin Ratio 1.43 Current Medications Medications Dose Sig/Ming Start Time Status Last (Trade) Ordered Route PRN Stop Time Admin Dose Reason Admin 40 mg ONCE STAT 05/28/19 DC 05/28/19 Pantoprazole IV 11:51 12:09 (Protonix 05/28/19 11:52 Iv) Procedures/MDM MDM The patient's presentation warrants further investigation. Previous medical records, if available, were reviewed. LABS The patient's laboratory testing was obtained and reviewed. No emergent treatment was required unless described below. CBC: No E/o systemic infection or thrombocytopenia. Mild normocytic anemia, not emergent, higher than all of her previous results from March 2019 when this last occurred. Chemistry: Elevated BUN which is likely consistent with an upper GI bleed. No E/o severe acidosis or alkalosis or renal failure or liver disease or diabetic ketoacidosis PT/INR: No E/o significant coagulopathy EKG EKG read by me: Rate/Rhythm: Regular rate and rhythm at a rate of 81 bpm Intervals: Normal [place]: Left axis deviation Impression: No evidence of acute ischemia or arrhythmia IMAGING Imaging and Radiology interpretation reviewed. CXR FINDINGS: Support lines and tubes: None. Mediastinum: Heart size within normal limits. Calcified atherosclerosis in the aorta. Lungs: Mildly elevated right hemidiaphragm.Diffuse interstitial prominence in both lungs. Scattered atelectasis in both lungs. No consolidations. No pneumothorax. Osseous structures: Intact. Osteopenia. Degenerative changes in the shoulders. IMPRESSION: Calcified atherosclerosis in the aorta. Scattered atelectasis in both lungs. Diffuse mild interstitial prominence in both lungs. Interstitial prominence could be chronic or reflect mild interstitial edema. Elevated right hemidiaphragm. Electronically viewed and signed by .Stanford Alanis MD, MD on 05/28/2019 13:08 TREATMENT/DISPOSITION The patient presents for a few episodes of bloody vomit. The patient has a known history of bleeding gastric ulcers. Unfortunately, the patient has not been able to be compliant with her gastritis medications, which is likely contributing to her symptoms today. The patient does not have any evidence of symptomatic anemia. The patient's hemoglobin is actually significantly improved when compared to her results from 2 months ago when this last happened. The patient was treated with Protonix and Pepcid in the emergency department. The patient was observed and remained stable. She did not have any subsequent episodes of hematemesis in the ER. I will restart the patient's medications in an outpatient setting via prescriptions. The patient understands the absolute importance of following up with her bus assistant for her endoscopy. The patient was given precautions with which to return immediately to the emergency department, including persistent GI bleeding or symptoms of anemia. The patient does not have any evidence of peritonitis. The patient does not have clinical symptoms concerning for mesenteric ischemia or ischemic colitis. There is no evidence of pneumoperitoneum or viscus perforation. The patient does not have right upper quadrant tenderness, and I have low suspicion for gallstones, cholecystitis or biliary colic. The patient does not have left upper quadrant tenderness. I have low suspicion for pancreatitis. The patient does not have any right lower quadrant tenderness, or periumbilical tenderness. I have low suspicion for appendicitis. The patient does not have suprapubic tenderness. I have decreased suspicion for cystitis. The patient does not have any left lower quadrant tenderness, and I have low suspicion for diverticulosis or diverticulitis. The patient does not have any flank tenderness. The patient does not have gross hematuria. I have decreased suspicion for nephrolithiasis or renal colic. The patient does not have any palpable pulsatile mass or severe abdominal pain radiating to the back. I have low suspicion for aortic aneurysm, dissection or rupture. DISCHARGE Upon reevaluation of the patient, symptoms have improved. No emergent diagnoses were identified. At this time, I feel that the patient stable for discharge. The patient was instructed to follow-up with a primary care physician in 1-3 days. The patient will be given strict precautions with which to return to the emergency department. Prescriptions: Pepcid, Protonix, Carafate, Zofran The patient's blood pressure was elevated at greater than 120/80 while in the emergency department. The patient was otherwise stable with no evidence of hy pertensive urgency or emergency. The patient does not require admission for blood pressure control. I have discussed with the patient the risks of hypertension. I have instructed the patient to return to the ER for any new or worsening symptoms including chest pain, shortness of breath, headache, blurred vision, confusion, nausea, vomiting or LOC. I have advised the patient to follow up with the primary care physician for outpatient monitoring and treatment for hypertension in 1-3 days. Disclaimer: Inadvertent spelling and grammatical errors are likely due to EHR/dictation software use and do not reflect on the overall quality of patient care. Note that the electronic time recorded on this note does not necessarily reflect the actual time of the patient encounter. Departure Diagnosis: Primary Impression: Peptic ulcer disease Additional Impressions: Upper GI bleed Normocytic anemia Elevated BUN Condition: Stable Patient Instructions: Anemia, Bleeding Peptic Ulcer: Treatment, When You Have Gastrointestinal (GI) Bleeding Additional Instructions: Thank you for for coming to [facility] for your care today. Please ask your nurse or provider if you have questions about your care today and do not leave until all your questions have been answered. Please use any medications given as directed and follow-up with your doctor (or the doctor you were referred to) in the next 1-3 days. If you do not have a primary care doctor you [place] [facility] [place] [facility] (listed below). You may also use motrin and tylenol as needed for fever and/or pain unless instructed otherwise by your provider or nurse. Indications for more urgent follow-up have been discussed, but you may return to the Emergency Department at ANY time for any worrisome or worsening symptoms. If you have abdominal pain, please know that no test or exam you received is perfect and you should follow up within 8 hours for continued pain. If you had any imaging studies today, such as an X-Ray or CT Scan, these studies will be reviewed later by a radiologist. You will be called if there are important findings that were not identified today, so make sure the contact information you provided at registration is correct. If you received any narcotic pain control medicine today, such as Vicodin, Morphine or Dilaudid, your coordination and judgment may be affected for a number of hours. Please do not drive or operate heavy machinery, and you may want someone to assist you at home. If you were given a prescription for narcotic medication, be aware that it is very addictive- use sparingly and only if necessary. PLEASE SEEK FURTHER EVALUATION AND MANAGEMENT AT YOUR DOCTORS OFFICE WITHIN THE NEXT 1-3 DAYS. IT IS YOUR RESPONSIBILITY TO MAKE AN APPOINTMENT FOR FOLOW-UP CARE. IF YOU HAVE A PRIMARY DOCTOR, PLEASE CALL THEIR OFFICE TO SCHEDULE AN APPOINTMENT FOR FOLLOW UP. IF YOU DO NOT HAVE A PRIMARY DOCTOR YOU CAN CALL OUR PHYSICIAN REFERRAL HOTLINE AT IF YOU CAN NOT AFFORD TO SEE A PHYSICIAN YOU CAN CHOSE FROM THE FOLLOWING [facility] CLINICS: [facility] [address] [facility] [facility] [address] [facility] [facility] [address] [facility] [facility] [address] [facility]. [facility] [address] [facility] [facility]. [address] WOOD CARABALLO MD May 28, 2019 14:49
[2019-05-28] MEDS ORDERED: FAMO-96 PO (14:53)
[2019-05-28] MEDS ORDERED: ONDA4TAB8 PO (14:53)
[2019-05-28] MEDS ORDERED: FAMOTIDINE 20 MG INJ IV ONE (15:00)
[2019-05-28] MEDS ORDERED: FAMOTIDINE 20 MG TAB PO SCH (15:30)
[2019-05-28 15:45] VITALS: BP 129/65; PULSE 81; RESP 20
== END 2019-05-28 15:45 | disposition home or self-care (01) ==
LOC: E/R 10:53
DX: K27.4 Chronic or unspecified peptic ulcer, site unspecified, with hemorrhage (principal); R79.89 Other specified abnormal findings of blood chemistry; E11.9 Type 2 diabetes mellitus without complications; Z79.82 Long term (current) use of aspirin; Z79.84 Long term (current) use of oral hypoglycemic drugs; Z96.653 Presence of artificial knee joint, bilateral
CPT/HCPCS: 36415; 71045; 80053; 84484; 85025; 85610; 85730; 86850; 86900; 86901; 93005; 96374; 96375; 99285; C9113